=== PATIENT | male | born 1980 | race Hispanic/Latino ===

== ENCOUNTER 2024-01-19 13:10 | Emergency (ER) | payer OTHER ==
[~2024-01-19] VITALS: Ht 185.4 cm; Wt 116.1 kg
[2024-01-19] MEDS: KETOROLAC TROMETHAMINE 30 MG/ML VIAL IV STA (14:51)
[2024-01-19] MEDS: SODIUM CHLORIDE 0.9% 1000ML 1,000 ML IV STA (14:51)
[2024-01-19] MEDS ORDERED: IOPAMIDOL 370 MG/ML 100 ML INFUS..BTL INJ ONE (15:16)
[2024-01-19] MEDS ORDERED: DIPHENHYDRAMINE HCL INJ 50 MG/ML VIAL ONE (15:59)
[2024-01-19] MEDS: METHYLPREDNISOLONE SOD SUCC 125 MG/2ML VIAL IV ONE (16:05)
[2024-01-19] MEDS: DIPHENHYDRAMINE HCL INJ 50 MG/ML VIAL IV ONE (16:05)
[2024-01-19] MEDS: FAMOTIDINE 20 MG/2 ML VIAL IV STA (16:05)
[2024-01-19] MEDS: ONDANSETRON HCL INJ 2MG/ML 2ML 2 MG/ML VIAL IV STA (16:08)
[2024-01-19] MEDS: Morphine 4mg INJECTION 4 MG/ML INJ IV ONE (16:08)
[2024-01-19] MEDS ORDERED: NAPROSYN500 MG PO (17:29)
[2024-01-19] MEDS ORDERED: METHOCARBAMOL750 MG PO (17:30)
[2024-01-19] MEDS ORDERED: ULTRAM 50MG50 MG PO (17:34)
[2024-01-19 18:05] VITALS: PULSE 80; RESP 18; TEMP 98.2; O2SAT 97
== END 2024-01-19 18:05 | disposition home or self-care (01) ==
LOC: FSED 13:30
DX: R10.31 Right lower quadrant pain (principal); S39.011A Strain of muscle, fascia and tendon of abdomen, initial encounter; R73.9 Hyperglycemia, unspecified; K57.90 Diverticulosis of intestine, part unspecified, without perforation or abscess without bleeding; K76.0 Fatty (change of) liver, not elsewhere classified; E66.01 Morbid (severe) obesity due to excess calories; Z98.84 Bariatric surgery status
CPT/HCPCS: 74177; 80048; 80076; 81003; 85025; 96374; 96375; 99284; J1200; J1885; J2270; J2405; J2919; J7030; Q9967